=== PATIENT | female | born 1990 | race Caucasian/White ===

== ENCOUNTER 2016-08-17 18:18 | Emergency (ER) | payer OTHER ==
[~2016-08-17] VITALS: Ht 170.2 cm; Wt 126.7 kg
[~2016-08-17 18:18] MED LIST: DEPO-PROVER150 MG/ML IM; MACROBID100 MG PO; MOTRIN800 MG PO; NOHOMEMEDS; NORCO 5/3251 TABLET PO; PREVIFEM1 EACH PO; PROVERA,CYCRIN10 MG PO; ZOLOFT50 MG PO
[2016-08-17 19:02] LABS: HEMATOCRIT 42.6 % (36.0-46.0); MCH 27.8 PG (29.0-34.0); MCHC 33.6 G/DL (30.0-36.0); MCV 82.9 FL (83-99); PLATELET COUNT 289 K/uL (156-360); RBC DIS.WIDTH-CV 14.7 % (11.8-14.6); RBC DIS.WIDTH-SD 43.9 % (39-53); RED BLOOD COUNT 5.14 M/uL (3.80-5.20); WHITE BLOOD COUNT 10.3 K/uL (4.1-10.2)
[2016-08-17 19:08] LABS: CHLORIDE 109 mEq/L (99-109); POTASSIUM 3.7 mEq/L (3.7-5.4); SODIUM 142 mEq/L (136-147)
[2016-08-17 19:09] LABS: GLUCOSE 79 mg/dL (70-99)
[2016-08-17 19:11] LABS: ANION GAP 11 MEQ/L (2-14)
[2016-08-17 19:13] LABS: GFR ESTIMATE (CALCULATED) > 59 mL/min/
[2016-08-17 19:14] LABS: UREA NITROGEN (BUN) 11 mg/dL (9-23)
[2016-08-17 19:19] LABS: TROP-I INTERPRETATION NEGATIVE; TROPONIN-I < 0.01 ng/mL (0.0-0.30)
[2016-08-17 20:49] LABS: D-DIMER ELISA 0.25 mg/L FEU (< 0.57)
[2016-08-17] MEDS ORDERED: ATIVAN1 MG PO (21:41)
[2016-08-17 21:51] VITALS: BP 120/69
== END 2016-08-17 21:52 | disposition home or self-care (01) ==
LOC: EME 18:18
DX: R07.89 Other chest pain (principal); F17.210 Nicotine dependence, cigarettes, uncomplicated
CPT/HCPCS: 71020; 80048; 84484; 85027; 85379; 93005; 99281; 99284

== ENCOUNTER 2016-12-14 08:40 | Emergency (ER) | payer OTHER ==
[~2016-12-14] VITALS: Ht 170.2 cm; Wt 121.4 kg
[~2016-12-14 08:40] MED LIST changes: +ATIVAN1 MG PO
[2016-12-14] MEDS ORDERED: MEDROL DOSEPAK4 MG PO (09:16)
[2016-12-14] MEDS ORDERED: KEFLEX500 MG PO (09:31)
[2016-12-14] MEDS ORDERED: KENALOG,ARISTOC80 G1 TP (09:31)
[2016-12-14 09:46] VITALS: BP 133/98
== END 2016-12-14 09:49 | disposition home or self-care (01) ==
LOC: EME 08:40
DX: L50.9 Urticaria, unspecified (principal)
CPT/HCPCS: 99281; 99283